=== PATIENT | male | born 1985 | race Hispanic/Latino ===

== ENCOUNTER 2018-02-13 22:31 | Emergency (ER) | payer OTHER ==
[2018-02-13] MEDS ORDERED: ONDANSETRON 4 MG/2 ML VIAL ONE ×2 (22:59→23:13)
[2018-02-13] MEDS ORDERED: NA CHLORIDE 0.9% 1,000 ML ONE ×2 (22:59→23:13)
[2018-02-13 23:38] LABS: Absolute Lymphocytes (CBC) 2.5 K/uL (0.7-4.9); Absolute Monocytes 1.2 K/uL (0.1-1.3); Absolute Neutrophil 10.4 K/uL (1.8-8.0); Basophils % 0.6 % (0-1.3); Eosinophils % 1.2 % (0-4.4); Lymphocytes % 17.6 % (15.3-44.8); MCH 31.2 pg (27.0-35.0); MCV 90.9 fL (80-100); MPV 8.7 fL (7.6-11.3); Monocytes % 8.2 % (3.3-12.3); RBC Red Blood Cell Count 4.73 M/uL (4.33-5.43)
[2018-02-13 23:56] LABS: Potassium 3.5 mmol/L (3.5-5.1)
[2018-02-13 23:58] LABS: Barbiturates NEGATIVE (NEGATIVE); Benzodiazepines POSITIVE (NEGATIVE); Cocaine NEGATIVE (NEGATIVE); METHAMPHETAM POSITIVE (NEGATIVE); Methadone NEGATIVE (NEGATIVE); Opiates NEGATIVE (NEGATIVE); Phencyclidine NEGATIVE (NEGATIVE); THC Cannibis POSITIVE (NEGATIVE)
--- NOTE | 2018-02-14 00:16 | ER ---
Nurse's Notes [facility] Name: Ruddy Marroquin Age: 32 yrs Sex: Male : 1985 Arrival Date: 02/13/2018 Time: 22:32 Bed 25 Private MD: Diagnosis: Epileptic seizures related to external causes;Superficial injury of head;Headache Presentation: 02/13 22:33 Presenting complaint: EMS states: Patient picked up from [facility], seen on monitor having lp1 witnessed seizure, fall, hitting head, + LOC for about 2 minutes; Hx of seizures, possible use of synthetic marijuana, Suboxone use. Care prior to arrival: IV initiated. 22 GA, in the left antecubital area, Glucose check: 108. Mechanism of Injury: Fall from standing position. Trauma event details: Injury occurred in the [facility], Injury occurred: in a public building. Injury occurred: February 13, 2018 Injury occurred at: 22:00. 22:33 Acuity: RADHA 2 lp1 22:33 Method Of Arrival: EMS: [facility] lp1 22:41 Transition of care: patient was not received from another setting of care. Onset of lp1 symptoms was February 13, 2018 at 22:00. Risk Assessment: Do you want to hurt yourself or someone else? Patient reports no desire to harm self or others. Initial Sepsis Screen: Does the patient meet any 2 criteria? No. Patient's initial sepsis screen is negative. Does the patient have a suspected source of infection? No. Patient's initial sepsis screen is negative. Trauma Activation: Alert Physician: ED Physician; Name: Dr. Espinoza; Notified At: 22:32; Arrived At: 22:32 Physician: General Surgeon; Name: N/A; Notified At: 22:32; Arrived At: Physician: Radiology; Name: Vanna Joshua; Notified At: 22:32; Arrived At: 22:34 Physician: Respiratory; Name: N/A; Notified At: 22:32; Arrived At: Physician: Lab; Name: N/A; Notified At: 22:32; Arrived At: Historical: - Allergies: 22:39 Haldol; lp1 22:39 Toradol; lp1 - Home Meds: 22:39 None [Active]; lp1 - PMHx: 22:39 Anxiety; Bipolar disorder; Manic Depressive disorder; lp1 - PSHx: 22:39 Appendectomy; Tonsillectomy; L3-L4 surgery; lp1 - Immunization history:: Adult Immunizations up to date. - Social history:: Smoking status: Patient uses tobacco products, smokes one pack cigarettes per day. Patient/guardian denies using alcohol, street drugs. - Immunization history: Last tetanus immunization: unknown. - Ebola Screening: : No symptoms or risks identified at this time. - Family history:: not pertinent. - Hospitalizations: : No recent hospitalization is reported. Screenin:41 Abuse screen: Denies threats or abuse. Denies injuries from another. Nutritional lp1 screening: No deficits noted. Tuberculosis screening: No symptoms or risk factors identified. Fall Risk Total Puckett Fall Scale indicates High Risk Score (45 or more points). Fall prevention measures have been instituted. Side Rails Up X 2 Placed Close to Nursing Station As available patient and family educated on Fall Prevention Program and Strategies. Primary Survey: 22:39 A: Airway: patent. Breathing/Chest: Respiratory pattern: tachypnea, Respiratory effort: lp1 spontaneous, Breath sounds: clear, bilaterally. Chest inspection: symmetrical rise and fall of the chest. Circulation: Skin color: pink, Skin temperature: warm, dry. Disability Alert. Patient noted to be anxious. 23:30 Reassessment Breathing/Chest Respiratory pattern Regular Respiratory effort Spontaneous.lp1 Secondary Survey: 23:30 HEENT: No deficits noted. Gastrointestinal: No deficits noted. : No deficits noted. lp1 Musculoskeletal: Circulation, motion, and sensation intact. Assessment: 23:12 General: Appears uncomfortable, Behavior is anxious, restless. Pain: Complains of pain lp1 in head Pain currently is 10 out of 10 on a pain scale. Quality of pain is described as pressure, Noted to be agitated, grimacing, restless. Neuro: Level of Consciousness is awake, alert, obeys commands, Oriented to person, place, time, situation, Reports headache in entire that is the "worst ever". EENT: No deficits noted. Cardiovascular: Patient's skin is warm and dry. Respiratory: Respiratory effort is labored, Respiratory pattern is symmetrical, Breath sounds are clear bilaterally. GI: No deficits noted. : No deficits noted. Derm: Skin is pink, warm \\T\\ dry. Musculoskeletal: Circulation, motion, and sensation intact. 02/14 00:02 Reassessment: Patient continues to be restless, pacing in room; complaint of continued lp1 headache, aware of need to wait for CT results. 00:02 Neuro: Level of Consciousness is awake, alert, obeys commands, Gait is steady, Speech lp1 is normal, Pupils are PERRLA. 00:08 Reassessment: Patient made phone call at this time; states "I'm ready to leave, I have lp1 a headache and need to just go to sleep in the dark"; Offered comfort measures for patient at this time, patient states "It's too noisy here, I just want to leave"; Patient states "my mom is a nurse practitioner, she will give me something for my headache"; Patient informed of asking provider for medication, patient refusing to stay for continued care; Provider notified. Vital Signs: 02/13 22:37 BP 127 / 110; Pulse 107; Resp 21; Temp 98.7(O); Pulse Ox 100% on R/A; Weight 99.79 kg lp1 (R); Pain 02/14; 23:00 BP 126 / 87; Pulse 99; Resp 20; Pulse Ox 97% on R/A; lp1 23:30 BP 132 / 92; Pulse 92; Resp 18; Pulse Ox 97% on R/A; lp1 Graham Coma Score: 22:41 Eye Response: spontaneous(4). Verbal Response: oriented(5). Motor Response: obeys lp1 commands(6). Total: 15. 22:45 Eye Response: spontaneous(4). Verbal Response: oriented(5). Motor Response: obeys lp1 commands(6). Total: 15. Trauma Score (Adult): 22:41 Eye Response: spontaneous(1); Verbal Response: oriented(1); Motor Response: obeys lp1 commands(2); Systolic BP: > 89 mm Hg(4); Respiratory Rate: 10 to 29 per min(4); Eric Score: 15; Trauma Score: 12 23:30 Eye Response: spontaneous(1); Verbal Response: oriented(1); Motor Response: obeys lp1 commands(2); Systolic BP: > 89 mm Hg(4); Respiratory Rate: 10 to 29 per min(4); Eric Score: 15; Trauma Score: 12 ED Course: 22:32 Patient arrived in ED. ds1 22:32 Fredi Espinoza MD is Attending Physician. rn 22:33 Angela Swenson RN is Primary Nurse. lp1 22:36 Triage completed. lp1 22:38 Arm band placed on left wrist. lp1 22:[address] via stretcher. lp1 22:40 Patient has correct armband on for positive identification. Side rails up X2. Patient lp1 maintains SpO2 saturation greater than 95% on room air. 22:55 CT Head Brain wo Cont In Process Unspecified. EDMS 23:12 Maintain EMS IV. Dressing intact. Site clean \\T\\ dry. Gauge \\T\\ site: 22g L AC. Missed lp 1 attempt(s): 22 gauge in left hand. 23:15 Thermoregulation: warm blanket given to patient. lp1 23:16 Radiology exam delayed due to lab results not completed at this time. (BUN/Creatinine). kw1 23:16 Seizure precautions initiated. lp1 23:42 Radiology exam delayed due to lab results not completed at this time. (BUN/Creatinine). kw1 02/14 00:11 No provider procedures requiring assistance completed. IV discontinued, No lp1 redness/swelling at site. Pressure dressing applied. Administered Medications: 02/13 23:09 Drug: NS 0.9% 1000 ml Route: IV; Rate: 1000 ml; Site: left antecubital; lp1 02/14 00:12 Follow up: IV Status: IV converted to saline lock; IV Intake: 400ml lp1 02/13 23:10 Drug: Zofran 4 mg Route: IVP; Site: left antecubital; lp1 02/14 00:12 Follow up: Response: Marked relief of symptoms lp1 Intake: 00:12 IV: 400ml; Total: 400ml. lp1 Output: 02/13 23:30 Urine: 350ml (Voided); Total: 350ml. lp1 Outcome: 02/14 00:13 Eloped from patient exam room, after seeing physician lp1 Condition: stable Instructed on returning to ER if symptoms persist 00:19 Patient left the ED. lp1 Signatures: Dispatcher [employer] Kmi Thibodeaux ds1 Fredi Espinoza MD MD rn SwensonAngela RN RN lp1 Jackie Duncan kw1 Corrections: (The following items were deleted from the chart) 02/13 22:38 22:33 Care prior to arrival: IV initiated. 22 GA, in the left antecubital area, lp1 lp1
--- NOTE | 2018-02-14 00:16 | EDPHYS ---
Physician Documentation [facility] Name: Ruddy Marroquin Age: 32 yrs Sex: Male : 1985 Arrival Date: 02/13/2018 Time: 22:32 Bed 25 Private MD: ED Physician Fredi Espinoza HPI: 02/13 23:47 This 32 yrs old Male presents to ER via EMS with complaints of Seizure, rn Syncope. 23:47 The patient presents after having a single isolated seizure. Character of seizure(s): rn Loss of consciousness: the patient experienced loss of consciousness, Motor activity: generalized, Incontinence: none, Circulation: the patient did not experience evidence of pulse disturbance. Seizure onset: just prior to arrival. Current symptoms: headache. The patient has experienced similar episodes in the past. Per report, in prison, witnessed seizure or shaking, fell to ground, either LOC or post-ictal for about 2 minutes, throwing up afterward, + hx of seizures but has not had one in a long time, patient reports throbbing headache and nausea/vomiting. Told EMS had synthetic marijuana and hasn't taken his suboxone. . Historical: - Allergies: 22:39 Haldol; lp1 22:39 Toradol; lp1 - Home Meds: 22:39 None [Active]; lp1 - PMHx: 22:39 Anxiety; Bipolar disorder; Manic Depressive disorder; lp1 - PSHx: 22:39 Appendectomy; Tonsillectomy; L3-L4 surgery; lp1 - Immunization history:: Adult Immunizations up to date. - Social history:: Smoking status: Patient uses tobacco products, smokes one pack cigarettes per day. Patient/guardian denies using alcohol, street drugs. - Immunization history: Last tetanus immunization: unknown. - Ebola Screening: : No symptoms or risks identified at this time. - Family history:: not pertinent. - Hospitalizations: : No recent hospitalization is reported. ROS: 23:47 Constitutional: Negative for fever, chills, and weight loss, Eyes: Negative for injury, rn pain, redness, and discharge, Neck: Negative for injury, pain, and swelling, Cardiovascular: Negative for chest pain, palpitations, and edema, Respiratory: Negative for shortness of breath, cough, wheezing, and pleuritic chest pain, Abdomen/GI: + nausea and vomiting MS/Extremity: Negative for injury and deformity, Skin: Negative for injury, rash, and discoloration, Neuro: + headache and seizure Exam: 23:47 Constitutional: This is a well developed, well nourished patient who is awake, alert, rn vomiting Head/Face: Normocephalic, atraumatic. Eyes: Pupils equal round and reactive to light, extra-ocular motions intact. Lids and lashes normal. Conjunctiva and sclera are non-icteric and not injected. Cornea within normal limits. Periorbital areas with no swelling, redness, or edema. Neck: Trachea midline, no thyromegaly or masses palpated, and no cervical lymphadenopathy. Supple, full range of motion without nuchal rigidity, or vertebral point tenderness. No Meningismus. Cardiovascular: tachycardic, regular, no murmur Respiratory: mild tachypnea, no retractions, clear bilaterally Abdomen/GI: Soft, non-tender, with normal bowel sounds. No distension or tympany. No guarding or rebound. No evidence of tenderness throughout. Skin: Warm, dry MS/ Extremity: Pulses equal, no cyanosis. Neurovascular intact. Full, normal range of motion. Equal circumference. Neuro: Awake and alert, GCS 15, oriented to person, place, time, and situation. Cranial nerves II-XII grossly intact. Motor strength 5/5 in all extremities. Sensory grossly intact. Cerebellar exam normal. Vital Signs: 22:37 BP 127 / 110; Pulse 107; Resp 21; Temp 98.7(O); Pulse Ox 100% on R/A; Weight 99.79 kg lp1 (R); Pain 10/10; 23:00 BP 126 / 87; Pulse 99; Resp 20; Pulse Ox 97% on R/A; lp1 23:30 BP 132 / 92; Pulse 92; Resp 18; Pulse Ox 97% on R/A; lp1 [place] Coma Score: 22:41 Eye Response: spontaneous(4). Verbal Response: oriented(5). Motor Response: obeys lp1 commands(6). Total: 15. 22:45 Eye Response: spontaneous(4). Verbal Response: oriented(5). Motor Response: obeys lp1 commands(6). Total: 15. Trauma Score (Adult): 22:41 Eye Response: spontaneous(1); Verbal Response: oriented(1); Motor Response: obeys lp1 commands(2); Systolic BP: > 89 mm Hg(4); Respiratory Rate: 10 to 29 per min(4); Eric Score: 15; Trauma Score: 12 23:30 Eye Response: spontaneous(1); Verbal Response: oriented(1); Motor Response: obeys lp1 commands(2); Systolic BP: > 89 mm Hg(4); Respiratory Rate: 10 to 29 per min(4); Eric Score: 15; Trauma Score: 12 MDM: 22:32 Patient medically screened. rn 02/14 00:14 Differential diagnosis: drug overdose, seizure, head injury, aneurysm. Data reviewed: rn vital signs, nurses notes. Refusal of service: The patient/guardian displays adequate decision making capability and despite a detailed discussion of alternatives, benefits, risks, and consequences refuses: pt upset and anxious, eloped prior to results, only thing back was ct head, which was normal, not able to do ct angio, understands risks of leaving, eloped. . 02/13 22:33 Order name: CBC with Diff rn 02/13 22:33 Order name: Basic Metabolic Panel rn 02/13 22:33 Order name: CT Head Brain wo Cont rn 02/13 22:33 Order name: Urine Drug Screen rn 02/13 23:34 Order name: Urine Dipstick--Ancillary (enter results) nv 02/13 22:33 Order name: IV Start; Complete Time: 22:42 rn 02/13 22:33 Order name: EKG; Complete Time: 22:34 rn 02/13 22:33 Order name: EKG - Nurse/Tech; Complete Time: 23:38 rn Administered Medications: 02/13 23:09 Drug: NS 0.9% 1000 ml Route: IV; Rate: 1000 ml; Site: left antecubital; lp1 02/14 00:12 Follow up: IV Status: IV converted to saline lock; IV Intake: 400ml lp1 02/13 23:10 Drug: Zofran 4 mg Route: IVP; Site: left antecubital; lp1 02/14 00:12 Follow up: Response: Marked relief of symptoms lp1 Disposition: 02/14/18 00:16 Patient left the facility after being seen by provider. Preliminary diagnosis are Epileptic seizures related to external causes, Superficial injury of head, Headache. - Patient left due to unknown. - Condition is Stable. - Problem is new. - Symptoms have improved. Signatures: Dispatcher [employer] EDFredi Maldonado MD MD rn Pena, Laura, RN RN lp1 Corrections: (The following items were deleted from the chart) 00:19 00:16 02/14/2018 00:16 Patient left the facility after being seen by provider. lp1 Preliminary diagnosis is Epileptic seizures related to external causes; Superficial injury of head; Headache. Reason stated they are leaving due to unknown. Condition is Stable. Problem is new. Symptoms have improved. rn
[2018-02-14 00:25] LABS: Urine Blood TRACE (NEG); Urine Glucose NEGATIVE (NEG); Urine Protein 2+ (NEG); Urine Specific Gravity >1.030 (1.005-1.030)
[2018-02-14 00:26] VITALS: TEMP 98.7
[2018-02-14 00:27] VITALS: O2SAT 97
[2018-02-14 00:29] VITALS: BP 132/92
--- NOTE | 2018-02-14 08:25 | RAD REPORT ---
EXAM DESCRIPTION: CT - Head Brain Wo Cont - 02/14/2018 6:53 am CLINICAL HISTORY: Seizure COMPARISON: 2014 TECHNIQUE: Computed axial tomography of the head was obtained. IV contrast was not requested. All CT scans are performed using dose optimization technique as appropriate and may include automated exposure control or mA/KV adjustment according to patient size. FINDINGS: An intracranial bleed is not seen . The ventricles are normal in caliber. No extra-axial fluid collection is noted. Fluid within the sinuses/ mastoids is not seen. IMPRESSION: No acute intracranial abnormality is seen. If patient's symptoms persist MRI of the bra in would be recommended.
--- NOTE | 2018-02-14 08:37 | EKG ---
Test Date: 2018-02-13 Test Time: 23:34:12 Entry Manager: JOSUE MEASUREMENT RESULTS: Intervals: Rate: 87 SC: 154 QRSD: 106 QT: 382 QTc: 459 Mercer: P: 55 SC: 154 QRS: -15 T: 52 INTERPRETIVE STATEMENTS: Normal sinus rhythm Normal ECG Compared to ECG 10/11/2014 09:44:17 Sinus tachycardia no longer present Incomplete right bundle-branch block no longer present Electronically Signed On 02-14-18 08:36:44 CDT by Fredy Andujar
== END 2018-02-14 00:19 | disposition left against medical advice (07) ==
LOC: ER 22:31
DX: S00.90XA Unspecified superficial injury of unspecified part of head, initial encounter (principal); G40.509 Epileptic seizures related to external causes, not intractable, without status epilepticus; W19.XXXA Unspecified fall, initial encounter; Y93.89 Activity, other specified; Y92.143 Cell of prison as the place of occurrence of the external cause; Z88.5 Allergy status to narcotic agent; F17.210 Nicotine dependence, cigarettes, uncomplicated
CPT/HCPCS: 36415; 70450; 80048; 80307 ×8; 81003; 85025; 93005; 96361; 96374; 99284; J2405 ×2; J7030 ×2

== ENCOUNTER 2020-03-22 10:29 | Emergency (ER) | payer OTHER ==
--- OUTSIDE RECORDS SUMMARY | 2020-03-22 10:31 | XMS REPORT | Continuity of Care Document ---
:[address] [facility] t Address [address] [place] [address] Care Team Providers Name Role Phone Rosemary Bonilla MD Attending Clinician Tesha GELLER Attending Clinician Kong DUMONT Attending Clinician Theodore DUMONT Attending Clinician Angella Chandler DO Attending Clinician Tushar DUMONT Attending Clinician Nicholas DUMONT Attending Clinician Kong DUMONT Admitting Clinician Nicholas DUMONT Admitting Clinician Problems Condition Condition Condition Status Onset Resolution Last Treating Co mments Source Name Details Category Date Date Treatment Clinician Date Bipolar Bipolar Problem Active [place] disorder Disorder 01-27 Family 00:00: Practic 00 e Low back Low Back Problem Active Rich ge pain Pain 01-27 Family 00:00: Practic 00 e Allergies, Adverse Reactions, Alerts Allergy Allergy Status Severity Reaction(s) Onset Inactive Treating Comm ents Source Name Type Date Date Clinician HALDOL Allergy Active Moderate Hives [place] to to severe Family substanc Practic e e TORADOL Allergy Active Moderate Hives Vill[place] e to to severe Family substanc Practic e e Social History Smoking Status Start Date Stop Date Source Never Smoker [facility] P ractice Medications This patient has no known medications. Vital Signs Vital Name Observation Time Observation Value Comments Source Height 2020-01-28 00:00:00 70 [in_i] [facility] BMI (Body Mass 2020-01-28 00:00:00 28.7 kg/m2 [facility] Body Weight 2020-01-28 00:00:00 200 [lb_av] [facility] Procedures Procedure Date / Time Performed Performing Clinician Sour e Lumbar Spine Fusion [facility] Plan of Care Planned Activity Planned Date Details Comments Source Future Appointment 2020-04-29 00:00:00 Shannan Lindsey age [facility] Keli, [address]; [place] [id number], [place] [id number] Instructions [facility] Encounters Start End Encounter Admission Attending Care Care Encounter Source Date/Time Date/Time Type Type Clinicians Facility Department ID 2020-03-02 2020-03-02 Outpatient [facility] [id number] [facility]:00 Gerardo - [facility] Clinics 2020-01-28 2020-01-28 Shannan [facility] [place] - [id number] [place] [facility] [facility] melody leon S[employer]IOR [employer] DEVELOPER: Medical - Practi c [address] [email or web address] [facility], [address], [place] [address] , Ph. 2020-01-09 2020-01-10 Emergency Chad, TRAUMA [id number] 21:07:00 00:59:00 Rosemary S CENTER [id number] 2020-01-10 2020-01-10 Transition Gregory Parkinson [id number] 00:00:00 00:00:00 of Care Trena Porter [id number] [place] [id number] 2020-01-08 2020-01-09 [facility] Kian Triana [id number] 21:38:00 20:00:00 Encounter Aly Jaimes [id number] 2020-01-08 2020-01-08 [place] [id number] 18:15:00 20:50:00 Rose Price [id number] [place] [id number] [place] [id number] 2019-07-07 2019-07-11 [facility] Carlito Finley [facility] [id number] 20:06:16 11:30:00 Encounter Cari Peterson [id number] [place] [id number] [place] [id number] Results This patient has no known results.
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
[2020-03-22] MEDS ORDERED: MEPERIDINE HCL 25 MG/ML SYR ONE (11:09)
[2020-03-22] MEDS ORDERED: LORazepam 2 MG/ML VIAL ONE (11:09)
[2020-03-22] MEDS ORDERED: NA CHLORIDE 0.9% 1,000 ML ONE (11:10)
--- NOTE | 2020-03-22 11:29 | RAD REPORT ---
EXAM DESCRIPTION: CT - Head Brain Wo Cont - 03/22/2020 11:21 am CLINICAL HISTORY: Headache COMPARISON: 2018 TECHNIQUE: Computed axial tomography of the head was obtained. IV contrast was not requested. All CT scans are performed using dose optimization technique as appropriate and may include automated exposure control or mA/KV adjustment according to patient size. FINDINGS: An intracranial bleed is not seen . The ventricles are normal in caliber. No extra-axial fluid collection is noted. Mild to moderate low-density areas within periventricular, deep and subcortical white matter likely r epresent ischemic changes secondary to small vessel disease. Fluid within the sinuses/ mastoids is not seen. IMPRESSION: No acute intracranial abnormality is seen. If patient's symptoms persist MRI of the bra in would be recommended.
--- NOTE | 2020-03-22 12:02 | EDPHYS ---
Physician Documentation [facility] Name: Ruddy Marroquin Age: 34 yrs Sex: Male : 1985 Arrival Date: 03/22/2020 Time: 10:35 Bed 6 Private MD: ED Physician Fredi Espinoza HPI: 03/22 10:49 This 34 yrs old Male presents to ER via EMS with complaints of Probable rn Seizure. 10:49 The patient presents after having a single isolated seizure, that lasted 30 second(s). rn Character of seizure(s): Motor activity: focal activity, Incontinence: none, Apnea: the patient did not experience apnea, Circulation: the patient did not experience evidence of pulse disturbance. Seizure onset: just prior to arrival. Associated injury: The patient did not suffer any apparent associated injury. Current symptoms: headache. The patient has experienced similar episodes in the past. The patient has not recently seen a physician. Reports in senior living, had brief seizure, lasted approx 30 seconds, officer reports shaking but still able to move arms, fell and hit a chair, patient reports has not had his tegretol for a while, and reports headache. Similar presentation in past. Only visit for seizure in past was when in senior living again. . Historical: - Allergies: 10:35 Haldol; aa5 10:35 Toradol; aa5 - PMHx: 10:35 Anxiety; Bipolar disorder; Manic Depressive disorder; aa5 10:35 Seizures; aa5 - PSHx: 10:35 Appendectomy; Tonsillectomy; L3-L4 surgery; aa5 - Family history:: not pertinent. - Hospitalizations: : No recent hospitalization is reported. ROS: 10:49 Constitutional: Negative for fever, chills, and weight loss, Eyes: Negative for injury, rn pain, redness, and discharge, Neck: Negative for injury, pain, and swelling, Cardiovascular: Negative for chest pain, palpitations, and edema, Respiratory: Negative for shortness of breath, cough, wheezing, and pleuritic chest pain, Abdomen/GI: Negative for abdominal pain, nausea, vomiting, diarrhea, and constipation, Back: Negative for injury and pain, MS/Extremity: Negative for injury and deformity, Skin: Negative for injury, rash, and discoloration, Neuro: Negative for weakness, numbness, tingling Exam: 10:49 Constitutional: This is a well developed, well nourished patient who is awake, alert, rn and in no acute distress. Head/Face: Normocephalic, atraumatic. Eyes: Pupils equal round and reactive to light, extra-ocular motions intact. Lids and lashes normal. Conjunctiva and sclera are non-icteric and not injected. Cornea within normal limits. Periorbital areas with no swelling, redness, or edema. Neck: Trachea midline, no thyromegaly or masses palpated, and no cervical lymphadenopathy. Supple, full range of motion without nuchal rigidity, or vertebral point tenderness. No Meningismus. Cardiovascular: Regular rate and rhythm. No pulse deficits. Respiratory: No increased work of breathing, no retractions or nasal flaring. Abdomen/GI: sof,t non-tender Back: No spinal tenderness. No costovertebral tenderness. Full range of motion. Skin: Warm, dry with normal turgor. Normal color with no rashes, no lesions, and no evidence of cellulitis. MS/ Extremity: Pulses equal, no cyanosis. Neurovascular intact. Full, normal range of motion. Equal circumference. Neuro: Awake and alert, GCS 15, oriented to person, place, time, and situation. Cranial nerves II-XII grossly intact. Motor strength 5/5 in all extremities. Sensory grossly intact. Cerebellar exam normal. Vital Signs: 10:35 BP 118 / 86; Pulse 87; Resp 16 S; Temp 98.3(O); Pulse Ox 100% on R/A; Pain 10/10; aa5 11:30 BP 130 / 89; Pulse 71; Resp 17; Pulse Ox 99% ; rb3 12:17 BP 114 / 81; Pulse 63; Resp 16; Pulse Ox 99% ; rb3 [place] Coma Score: 10:35 Eye Response: spontaneous(4). Verbal Response: oriented(5). Motor Response: obeys aa5 commands(6). Total: 15. MDM: 10:38 Patient medically screened. rn 11:59 Differential diagnosis: seizure, headache, migraine, pseudoseizure. Data reviewed: rn vital signs, nurses notes, radiologic studies, CT scan, and as a result, I will discharge patient. Counseling: I had a detailed discussion with the patient and/or guardian regarding: the historical points, exam findings, and any diagnostic results supporting the discharge/admit diagnosis, radiology results, the need for outpatient follow up, to return to the emergency department if symptoms worsen or persist or if there are any questions or concerns that arise at home. Response to treatment: the patient's symptoms have markedly improved after treatment, and as a result, I will discharge patient. Special discussion: I discussed with the patient/guardian in detail that at this point there is no indication for admission to the hospital. It is understood, however, that if the symptoms persist or worsen the patient needs to return immediately for re-evaluation. ED course: Pt resting, stable vitals, no seizures here, neg ct head. . 03/22 10:41 Order name: CT Head Brain wo Cont; Complete Time: 11:32 rn 03/22 12:10 Order name: Diet Regular; Complete Time: 12:11 aa5 03/22 10:41 Order name: IV Start; Complete Time: 10:54 rn Administered Medications: 10:58 Drug: Ativan 1 mg Route: IVP; Site: right hand; aa5 11:10 Follow up: Response: No adverse reaction aa5 10:58 Drug: NS 0.9% 1000 ml Route: IV; Rate: 1000 ml; Site: right hand; aa5 12:03 Follow up: IV Status: Completed infusion rb3 10:58 Drug: Demerol 25 mg Route: IVP; Site: right hand; aa5 12:10 Follow up: Response: No adverse reaction; Pain is unchanged, physician notified aa5 12:10 Drug: morphine 4 mg Route: IVP; Site: right hand; aa5 12:30 Follow up: Response: No adverse reaction; Pain is decreased rb3 Disposition: 03/22/20 12:01 Discharged to Home. Impression: Epileptic seizures related to external causes, Headache. - Condition is Stable. - Discharge Instructions: General Headache Without Cause, Seizure, Adult. - Prescriptions for Tegretol 200 mg Oral Tablet - take 1 tablet by ORAL route every 12 hours; 60 tablet. - Medication Reconciliation Form, Thank You Letter, Antibiotic Education, Prescription Opioid Use form. - Follow up: Private Physician; When: As needed; Reason: Recheck today's complaints, Re-evaluation by your physician. - Problem is new. - Symptoms have improved. Signatures: Dispatcher [employer] EDMS Fredi Espinoza MD MD rn Calderon, Audri, RN RN aa5 Keren Walter, RN RN rb3 Corrections: (The following items were deleted from the chart) 12:46 12:01 03/22/2020 12:01 Discharged to Home. Impression: Epileptic seizures related to rb3 external causes; Headache. Condition is Stable. Forms are Medication Reconciliation Form, Thank You Letter, Antibiotic Education, Prescription Opioid Use. Follow up: Private Physician; When: As needed; Reason: Recheck today's complaints, Re-evaluation by your physician. Problem is new. Symptoms have improved. rn
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
[2020-03-22] MEDS ORDERED: MORPHINE 4 MG/ML SYR ONE (12:21)
[2020-03-22 13:58] VITALS: TEMP 98.3
[2020-03-22 14:03] VITALS: O2SAT 99
[2020-03-22 14:04] VITALS: BP 114/81
== END 2020-03-22 12:46 | disposition home or self-care (01) ==
LOC: ER 10:29
DX: G40.909 Epilepsy, unspecified, not intractable, without status epilepticus (principal); R51.9 Headache, unspecified; Z88.8 Allergy status to other drugs, medicaments and biological substances
CPT/HCPCS: 96361; 70450; 96375; 96374; 99284; J2175; J7030

== ENCOUNTER 2021-02-10 07:43 | Emergency (ER) | payer OTHER ==
[2021-02-10] MEDS ORDERED: ACETAMINOPHEN 325 MG TABLET ONE (08:50)
[2021-02-10] MEDS ORDERED: dexAMETHasone 10 MG/ML VIAL ONE (08:50)
--- NOTE | 2021-02-10 08:53 | RAD REPORT ---
EXAM DESCRIPTION: RAD - Foot Left 3 View - 02/10/2021 8:46 am CLINICAL HISTORY: foot pain COMPARISON: No comparisons FINDINGS: No fracture, dislocation or periosteal reaction. No acute or destructive bony process. No air or foreign body in the soft tissues. IMPRESSION: Negative left foot examination.
--- NOTE | 2021-02-10 08:57 | RAD REPORT ---
EXAM DESCRIPTION: RAD - Foot Right 3 View - 02/10/2021 8:47 am CLINICAL HISTORY: foot pain COMPARISON: No comparisons FINDINGS: No fracture, dislocation or periosteal reaction. No acute or destructive bone process seen . Patient has a bipartite sesamoid bone near the fifth metatarsal head. No air or foreign body in the soft tissues. Electronic device surrounds the ankle. IMPRESSION: Negative right foot examination for acute or suspicious finding.
--- NOTE | 2021-02-10 09:00 | EDPHYS ---
Physician Documentation [facility] Name: Ruddy Marroquin Age: 35 yrs Sex: Male : 1985 Arrival Date: 02/10/2021 Time: 07:47 Bed 11 Private MD: Lex Oh HPI: 02/10 08:11 This 35 yrs old Male presents to ER via Ambulatory with complaints of foot jmm pain. 08:11 The patient presents with pain. Onset: The symptoms/episode began/occurred gradually, 3 jmm day(s) ago. Modifying factors: The symptoms are alleviated by nothing, the symptoms are aggravated by weight bearing. Associated signs and symptoms: Pertinent negatives: fever. 85-year-old male with a history of anxiety, bipolar, epilepsy, chronic back pain the presents emerged part with complaints of bilateral foot pain which he states worsened after doing yard work yesterday but started approximately 3 days ago. Patient denies known injury. Patient does admit to scratching his feet. Denies that the itch describes the pain is burning.. Historical: - Allergies: 07:55 Haldol; jl7 07:55 Toradol; jl7 - Home Meds: 07:55 None [Active]; jl7 - PMHx: 07:55 Anxiety; Bipolar disorder; Manic Depressive disorder; Seizures; Chronic back pain; jl7 - PSHx: 07:55 Appendectomy; Tonsillectomy; jl7 - Immunization history:: Adult Immunizations not up to date, Client reports having NOT received the Covid vaccine. - Social history:: Smoking status: Patient reports the use of cigarette tobacco products, smokes one-half pack cigarettes per day, Patient uses street drugs, marijuana, Patient/guardian denies using alcohol. ROS: 08:11 Constitutional: Negative for fever, chills, and weight loss, Cardiovascular: Negative jmm for chest pain, palpitations, and edema, Respiratory: Negative for shortness of breath, cough, wheezing, and pleuritic chest pain. 08:11 MS/extremity: Positive for pain. 08:11 All other systems are negative. Exam: 08:11 Head/Face: atraumatic. Eyes: EOMI, no conjunctival erythema appreciated ENT: Moist jmm Mucus Membranes Neck: Trachea midline, Supple Chest/axilla: Normal chest wall appearance and motion. Cardiovascular: Regular rate and rhythm. No edema appreciated Respiratory: Normal respirations, no respiratory distress appreciated Abdomen/GI: Non distended, soft Back: Normal ROM 08:11 Constitutional: The patient appears alert, awake, anxious. 08:11 Musculoskeletal/extremity: Multiple scratches full dorsalis pulse appreciated bilaterally, compartments are soft, full range of motion appreciated, neurovascular intact. Pain elicited on palpation of the lateral and medial sides of the feet bilaterally mainly at the distal regions of the feet. 08:11 Skin: Appearance: Color: normal in color, Multiple scratches noted to the feet bilaterally. 08:11 Neuro: Orientation: is normal, Mentation: is normal, Memory: is normal. Vital Signs: 07:54 BP 133 / 91; Pulse 81; Resp 15; Temp 97.5; Pulse Ox 98% ; Weight 97.52 kg; Height 5 ft. jl7 10 in. (177.80 cm); Pain 7/10; 07:54 Body Mass Index 30.85 (97.52 kg, 177.80 cm) jl7 MDM: 08:05 Patient medically screened. [facility] 08:58 Data reviewed: vital signs, nurses notes. Counseling: I had a detailed discussion with marissa the patient and/or guardian regarding: the historical points, exam findings, and any diagnostic results supporting the discharge/admit diagnosis, radiology results, the need for outpatient follow up, to return to the emergency department if symptoms worsen or persist or if there are any questions or concerns that arise at home. ED course: Patient is alert and nontoxic in appearance in the ED. I do not suspect cellulitis, or an acute infectious process. Patient advised to follow-up with podiatry otherwise given strict return precautions. Patient understood and agrees plan of care.. 02/10 08:10 Order name: Foot Left 3 View XRAY; Complete Time: 08:54 [facility] 02/10 08:10 Order name: Foot Right 3 View XRAY; Complete Time: 08:58 [facility] Administered Medications: 08:30 Drug: Decadron (dexamethasone) 10 mg Route: IM; Site: left gluteus; tc5 09:24 Follow up: Response: No adverse reaction tc5 08:30 Drug: Tylenol 650 mg Route: PO; tc5 09:23 Follow up: Response: No adverse reaction tc5 Disposition: 02/11 07:51 Co-signature as Attending Physician, Lex Tellez MD I agree with the assessment and delmy plan of care. Disposition Summary: 02/10/21 08:59 Discharge Ordered Location: Home [facility] Condition: Stable [facility] Diagnosis - Pain in foot and toes [facility] Followup: jm - With: Private Physician - When: 2 - 3 days - Reason: Recheck today's complaints, Continuance of care, Re-evaluation by your physician Discharge Instructions: - Discharge Summary Sheet [facility] - Foot Pain [facility] Forms: - Medication Reconciliation Form [facility] - Thank You Letter [facility] - Antibiotic Education [facility] - Prescription Opioid Use [facility] Prescriptions: - orphenadrine citrate 100 mg Oral Tablet Sustained Release - take 1 tablet by ORAL route 2 times per day As needed; 20 tablet; Refills: 0, [facility] Product Selection Permitted Signatures: Dispatcher [employer] Lex López MD MD cha Mickail, Joel, PA PA jmm Leal, Jahala, RN RN jl7 Gail Restrepo RN RN tc5
--- NOTE | 2021-02-10 09:00 | ER ---
Nurse's Notes [facility] Name: Ruddy Marroquin Age: 35 yrs Sex: Male : 1985 Arrival Date: 02/10/2021 Time: 07:47 Bed 11 Private MD: Diagnosis: Pain in foot and toes Presentation: 02/10 07:54 Chief complaint: Patient states: Burning to bilateral feet since this morning, reports jl7 being bit by ants yesterday while working in the yard. Coronavirus screen: At this time, the client does not indicate any symptoms associated with coronavirus-19. Ebola Screen: No symptoms or risks identified at this time. Initial Sepsis Screen: Does the patient meet any 2 criteria? No. Patient's initial sepsis screen is negative. Does the patient have a suspected source of infection? No. Patient's initial sepsis screen is negative. Risk Assessment: Do you want to hurt yourself or someone else? Patient reports no desire to harm self or others. Onset of symptoms was February 10, 2021. Care prior to arrival: None. 07:54 Method Of Arrival: Ambulatory [facility] 07:54 Acuity: RADHA 4 jl7 09:24 Note 0900- Pt resting, NAD, medication effective. tc5 Triage Assessment: 07:55 General: Appears in no apparent distress. uncomfortable, Behavior is cooperative, jl7 restless. Pain: Complains of pain in right foot and left foot Pain currently is 7 out of 10 on a pain scale. Historical: - Allergies: 07:55 Haldol; jl7 07:55 Toradol; jl7 - Home Meds: 07:55 None [Active]; jl7 - PMHx: 07:55 Anxiety; Bipolar disorder; Manic Depressive disorder; Seizures; Chronic back pain; jl7 - PSHx: 07:55 Appendectomy; Tonsillectomy; jl7 - Immunization history:: Adult Immunizations not up to date, Client reports having NOT received the Covid vaccine. - Social history:: Smoking status: Patient reports the use of cigarette tobacco products, smokes one-half pack cigarettes per day, Patient uses street drugs, marijuana, Patient/guardian denies using alcohol. Assessment: 08:20 General: Appears uncomfortable, Behavior is cooperative, appropriate for age, anxious, tc5 restless, pt reports Bilat foot pain since yesterday when he was working in the yard around ants. . Derm: few scabbed areas noted to the top of bilat feet. Vital Signs: 07:54 BP 133 / 91; Pulse 81; Resp 15; Temp 97.5; Pulse Ox 98% ; Weight 97.52 kg; Height 5 ft. jl7 10 in. (177.80 cm); Pain 7/10; 07:54 Body Mass Index 30.85 (97.52 kg, 177.80 cm) 7 ED Course: 07:47 Patient arrived in ED. as 07:50 Aaron Fuller PA is PHCP. [facility] 07:50 Lex Tellez MD is Attending Physician. [facility] 07:55 Triage completed. jl7 07:55 Arm band placed on right wrist. 7 08:19 Gail Restrepo, RN is Primary Nurse. tc5 08:47 Foot Left 3 View XRAY In Process Unspecified. EDMS 08:47 Foot Right 3 View XRAY In Process Unspecified. EDMS Administered Medications: 08:30 Drug: Decadron (dexamethasone) 10 mg Route: IM; Site: left gluteus; tc5 09:24 Follow up: Response: No adverse reaction tc5 08:30 Drug: Tylenol 650 mg Route: PO; tc5 09:23 Follow up: Response: No adverse reaction tc5 Outcome: 08:59 Discharge ordered by . [facility] 09:24 Patient left the ED. tc5 Signatures: Dispatcher [employer] EDMS Aaron Fuller PA PA jmm Martinez, Amelia as Leal, Jahala RN RN [facility] Gail Restrepo, DUYEN RN tc5
[2021-02-10 09:40] VITALS: BP 133/91; TEMP 97.5; O2SAT 98
== END 2021-02-10 09:24 | disposition home or self-care (01) ==
LOC: ER 07:43
DX: M79.672 Pain in left foot (principal); M79.671 Pain in right foot; M79.675 Pain in left toe(s); M79.674 Pain in right toe(s); F17.210 Nicotine dependence, cigarettes, uncomplicated; Z91.040 Latex allergy status
CPT/HCPCS: 73630 ×2; 96372; 99283; J1100